=== PATIENT | female | born 1975 | race Caucasian/White ===

== ENCOUNTER 2021-04-16 09:16 | Emergency (ER) | payer MEDICAID ==
[~2021-04-16] VITALS: Ht 170.2 cm; Wt 74.8 kg
--- NOTE | 2021-04-16 09:23 | NUR ---
The patient bibs for c/o neck pain since saturday 11/25 pain scale. Will continue to monitor the patient.
--- NOTE | 2021-04-16 09:25 | NUR ---
DR BARTON AT THE BEDSIDE
[2021-04-16] MEDS ORDERED: IBUP-1955 PO (09:31)
[2021-04-16] MEDS ORDERED: LORA-259 PO (09:31)
[2021-04-16 09:38] VITALS: BP 136/70
--- NOTE | 2021-04-16 09:38 | NUR ---
Patient discharged to home in stable condition. Written and verbal after care instructions given. Patient verbalizes understanding of instruction.
== END 2021-04-16 09:38 | disposition home or self-care (01) ==
LOC: ER 09:16
DX: S13.9XXA Sprain of joints and ligaments of unspecified parts of neck, initial encounter (principal); F32.9 Major depressive disorder, single episode, unspecified; F41.9 Anxiety disorder, unspecified; Z79.899 Other long term (current) drug therapy; X58.XXXA Exposure to other specified factors, initial encounter; Y93.89 Activity, other specified; Y92.89 Other specified places as the place of occurrence of the external cause; Y99.8 Other external cause status